=== PATIENT | male | born 1995 | race Two or more races ===

== ENCOUNTER 2019-03-11 04:52 | Emergency (ER) | payer SELFPAY ==
--- NOTE | 2019-03-11 05:17 | EDM.PDOCBH ---
ED HPI GENERAL MEDICAL PROBLEM - General Chief Complaint: Drug or Alcohol Abuse Stated Complaint: MEDICAL CLEARENCE Time Seen by Provider: 03/11/19 05:13 Source of Information: Reports: Patient, Police History Limitations: Reports: No Limitations - History of Present Illness INITIAL COMMENTS - FREE TEXT/NARRATIVE: This is a 24-year-old male. He was picked up by the police because of an altercation with his cousins at home. Apparently his last drink was around midnight but supposedly he has been also using meth. He does not discuss what the altercation was about but supposedly a gun was drawn those never fired. That 's when the police were called and they arrested him and brought him to the ER because of his drinking. He is walking with no difficulty he denies any dizziness he has multiple abrasions and contusions to his head and face but he denies any loss of consciousness. He denies any particular headache at this time. He denies any neck pain. He says he was not hit in the chest or the back or kicked in the abdomen and he denies any lower extremity injuries. He is not up-to-date with his tetanus but he does not want a tetanus. - Related Data Allergies Allergy/AdvReac Type Severity Reaction Status Date / Time No Known Allergies Allergy Verified 03/11/19 04:59 Home Meds: Home Meds . [No Known Home Meds] 03/11/19 [History] Past Medical History - Past Health History Medical/Surgical History: Denies Medical/Surgical History Social & Family History - Tobacco Use Smoking Status *Q: Current Every Day Smoker Years of Tobacco use: 3 Packs/Tins Daily: 0.4 - Caffeine Use Caffeine Use: Reports: None - Recreational Drug Use Recreational Drug Use: No ED ROS GENERAL - Review of Systems Review Of Systems: See Below Constitutional: Reports: No Symptoms HEENT: Reports: Other (As per history of present illness) Respiratory: Reports: No Symptoms Cardiovascular: Reports: No Symptoms Endocrine: Reports: No Symptoms GI/Abdominal: Reports: No Symptoms : Reports: No Symptoms Musculoskeletal: Reports: Other (As per history of present illness) Skin: Reports: Other (As per history of present illness) Neurological: Denies: Dizziness, Headache Psychiatric: Reports: No Symptoms Hematologic/Lymphatic: Reports: No Symptoms ED EXAM, BEHAVIORAL HEALTH - Physical Exam Exam: See Below Exam Limited By: No Limitations General Appearance: Alert, WD/WN, No Apparent Distress Eye Exam: Bilateral Eye: Normal Inspection Ears: Normal External Exam, Normal Canal, Normal TMs Nose: Normal Inspection, Other (No nasal bleeding noted) Throat/Mouth: Normal Lips, Normal Voice, No Airway Compromise, Other (He denies any chipped teeth there is no cuts to his tongue) Head: Other (He has a small cut to his right pentecostalism area of bruise to his left pentecostalism area and then under each either just beginning bruising noted, he denies any jaw pain and he moves his jaw with no difficulty and talks with no difficulty, he is developing some swelling underneath his right eye and cheekbone as well as his right superior orbit around the brow, he also has some swelling on the left parietal area from the contusion, and he is developing a bruise underneath his left eye as well) Neck: Supple, Other (He denies any tenderness of his neck with movement or palpation) Respiratory/Chest: No Respiratory Distress, Lungs Clear, Normal Breath Sounds, Other (Ribs bilaterally are nontender on palpation, his anterior chest is nontender) Cardiovascular: Regular Rate, Rhythm, No Murmur GI/Abdominal: Soft, Other (He denies any trauma to his lower abdomen or upper abdomen) Back Exam: Normal Inspection, Full Range of Motion, Other (He denies any injuries to his back) Extremities: Other (He has multiple abrasions to his upper extremities scattered nothing that needs suturing) Neurological: Alert, Normal Mood/Affect, Other (Patient walks and has balance with no difficulty, he carries on a excellent conversation) Psychiatric: Alert, Normal Affect, Normal Cognition, Normal Mood, Oriented Skin Exam: Warm, Dry ED LACERATION PROCEDURES - Laceration/Wound Repair Right Head Lac/wound length in cm: 1 Appearance: Linear, Clean Distal NVT: Neuro & Vascular Intact Skin Prep: Saline Exploration/Debridement/Repair: Wound Explored Closed with: Dermabond Drain Placement: No Sterile Dressing Applied: Nurse Tetanus Status Addressed: Yes Complications: No COURSE, BEHAVIORAL HEALTH COMP - Course Vital Signs: Last Vital Signs Temp 97.8 F 03/11/19 04:57 Pulse 116 H 03/11/19 04:57 Resp 16 03/11/19 04:57 BP 135/75 03/11/19 04:57 Pulse Ox 93 L 03/11/19 04:57 Medical Clearance: 03/11/19 05:19 Patient is refusing any sort x-rays or CAT scans of his head. He did allow me to glue his laceration in the right pentecostalism area. 03/11/19 05:33 I spoke to the patient again he is still and straining getting a tetanus booster nor is he interested in getting a CAT scan or x-rays. Departure - Departure Time of Disposition: 05:24 Disposition: Home, Self-Care 01 Condition: Good Clinical Impression: Alcohol use disorder Contusion of face Qualifiers: Encounter type: initial encounter Qualified Code(s): S00.83XA - Contusion of other part of head, initial encounter Abrasion of multiple sites of left upper arm Qualifiers: Encounter type: initial encounter Qualified Code(s): S40.812A - Abrasion of left upper arm, initial encounter Abrasion of multiple sites of right upper arm Qualifiers: Encounter type: initial encounter Qualified Code(s): S40.811A - Abrasion of right upper arm, initial encounter Laceration of forehead Qualifiers: Encounter type: initial encounter Qualified Code(s): S01.81XA - Laceration without foreign body of other part of head, initial encounter - Discharge Information *PRESCRIPTION DRUG MONITORING PROGRAM REVIEWED*: Not Applicable *COPY OF PRESCRIPTION DRUG MONITORING REPORT IN PATIENT DANIELLE: Not Applicable Instructions: Stitches, Jose, or Adhesive Wound Closure, [id number] Forms: ED Department Discharge Additional Instructions: Glue was used to your right forehead laceration, normally will stay on for 3 to 5 days and then it peels off on its own, became careful when you wash around that area that you don't pull it off to soon, watch for infection and if there is any signs of infection to your abrasions on your arms follow up with your family doctor, take Tylenol or ibuprofen as needed for the soreness in the pain , since she refused CT scan and x-rays as well as the tetanus booster if there is a change or persistent headache return to the ER for reevaluation otherwise return to the ER as needed The patient was assessed in the emergency department and I do not see any foreseeable future deterioration of his condition and he is safe to discharged and be evaluated at the nursing home for occupancy
== END 2019-03-11 05:36 | disposition home or self-care (01) ==
LOC: JD.ED 04:52
DX: S01.81XA Laceration without foreign body of other part of head, initial encounter (principal); S40.812A Abrasion of left upper arm, initial encounter; S40.811A Abrasion of right upper arm, initial encounter; F17.210 Nicotine dependence, cigarettes, uncomplicated; F10.20 Alcohol dependence, uncomplicated; Y04.0XXA Assault by unarmed brawl or fight, initial encounter; Y92.009 Unspecified place in unspecified non-institutional (private) residence as the place of occurrence of the external cause
CPT/HCPCS: 12001; 12011; 99282; 99284

== ENCOUNTER 2021-03-03 20:10 | Emergency (ER) | payer OTHER ==
[2021-03-03] MEDS ORDERED: Penicillin V Potassium 500 MG Tab PO ONE (22:17)
--- NOTE | 2021-03-03 22:17 | EDM.PDOC ---
ED HPI GENERAL MEDICAL PROBLEM - General Chief Complaint: ENT Problem Stated Complaint: EAR AND TOOTH PAIN Time Seen by Provider: 03/03/21 20:58 Source of Information: Reports: Patient, RN Notes Reviewed History Limitations: Reports: No Limitations - History of Present Illness INITIAL COMMENTS - FREE TEXT/NARRATIVE: Patient is a 25 year old male presenting to the ER with c/o pain to his left lower wisdom tooth with radiation into his left ear. He has states that he has had infection in this tooth in the past with the last episode being aproximately 1 year ago. He took antibiotics at that time and has not had problems since. He states that he knows it needs to be removed; however, he doesn't have dental insurance. He took ibuprofen approximately 3 hours ago which did help the pain. Denies any fever, chills, nausea, or vomiting. Left Lower Oral/Mouth Pain Score (Numeric/FACES): 8 - Related Data Allergies Allergy/AdvReac Type Severity Reaction Status Date / Time No Known Allergies Allergy Verified 03/03/21 20:57 Home Meds: Home Meds Penicillin V Potassium 500 mg PO Q8HR 7 Days #20 tab 03/03/21 [Rx] Past Medical History - Past Health History Medical/Surgical History: Denies Medical/Surgical History Social & Family History - Tobacco Use Tobacco Use Status *Q: Never Tobacco User Second Hand Smoke Exposure: No - Caffeine Use Caffeine Use: Reports: None - Recreational Drug Use Recreational Drug Use: No ED ROS ENT - Review of Systems Review Of Systems: See Below Constitutional: Denies: Fever, Chills HEENT: Reports: Other (left wisdom tooth pain) Respiratory: Reports: No Symptoms Cardiovascular: Reports: No Symptoms Endocrine: Reports: No Symptoms GI/Abdominal: Reports: No Symptoms : Reports: No Symptoms Musculoskeletal: Reports: No Symptoms Skin: Reports: No Symptoms Neurological: Reports: No Symptoms Psychiatric: Reports: No Symptoms Hematologic/Lymphatic: Reports: No Symptoms Immunologic: Reports: No Symptoms ED EXAM, ENT - Physical Exam Exam: See Below Exam Limited By: No Limitations General Appearance: Alert, WD/WN, No Apparent Distress Mouth/Throat: Other (errythema surround tooth 17. No purulent drainage.) Respiratory/Chest: No Respiratory Distress, Lungs Clear, Normal Breath Sounds, No Accessory Muscle Use, Chest Non-Tender Cardiovascular: Normal Peripheral Pulses, Regular Rate, Rhythm, No Edema, No Gallop, No JVD, No Murmur, No Rub Neurological: Alert, Oriented, CN II-XII Intact, Normal Cognition, Normal Gait, Normal Reflexes, No Motor/Sensory Deficits Psychiatric: Normal Affect, Normal Mood Course - Vital Signs Last Recorded V/S: Last Vital Signs Temp 97.1 F 03/03/21 21:01 Pulse 64 03/03/21 21:01 Resp 16 03/03/21 21:01 BP 144/91 H 03/03/21 21:01 Pulse Ox 98 03/03/21 21:01 - Re-Assessments/Exams Free Text/Narrative Re-Assessment/Exam: Patient is a 25 year old male presenting to the ER with c/o pain to his left lower wisdom tooth. He reports having infection in this tooth approximately 1 year ago. He was on antibiotics at that time and the symptoms resolved. He has not had problems with it until this episode. He took ibuprofen which did help the pain. On exam, he does have erythema of the gums surrounding tooth 17. There is no purlence. I will start the patient on penicillin V with first dose giving tonight. Discharge instructions as documented. Departure - Departure Time of Disposition: 22:18 Disposition: Home, Self-Care 01 Condition: Good Clinical Impression: Dental infection - Discharge Information *PRESCRIPTION DRUG MONITORING PROGRAM REVIEWED*: No *COPY OF PRESCRIPTION DRUG MONITORING REPORT IN PATIENT DANIELLE: No Prescriptions: Penicillin V Potassium 500 mg PO Q8HR 7 Days #20 tab Instructions: Dental Abscess, [id number] Referrals: PCP,None [Primary Care Provider] - Additional Instructions: You were seen in the emergency department this evening for pain and swelling to you left lower wisdom tooth. You have been started on penicillin V for treatment of this. The first dose was given in ER. A prescription for the remaining doses has been sent to [facility]. Take this medication as prescribed in its entirety. You may continue to use ibuprofen as needed for pain. Recommend that you consult with a dentist to have the tooth removed as it will continue to get reinfected until your do so. If you should experience any new or worsening symptoms of concern, please do not hesitate to return to the emergency department. Sepsis Event Note (ED) - Evaluation Sepsis Screening Result: No Definite Risk - Focused Exam Vital Signs: Vital Signs Temp Pulse Resp BP Pulse Ox 03/03/21 21:01 97.1 F 64 16 144/91 H 98
== END 2021-03-03 22:34 | disposition home or self-care (01) ==
LOC: JD.ED 20:10
DX: K04.7 Periapical abscess without sinus (principal)
CPT/HCPCS: 99282; A9270; 99283

== ENCOUNTER 2021-07-24 10:12 | Emergency (ER) | payer OTHER | END 2021-07-24 10:15 | LOC: JD.ED 10:12 | DX: Z53.21 Procedure and treatment not carried out due to patient leaving prior to being seen by health care provider (principal) ==